=== PATIENT | female | born 1965 | race Caucasian/White ===

== ENCOUNTER → 2017-03-26 | Outpatient (CLI) | payer OTHER ==
--- NOTE | 2017-03-26 16:51 | KCIC ---
Bilateral digital screening mammograms: Reason for examination: Routine screening. Comparison is made to previous studies dated 12/25/2015, 12/18/2014 and 04/11/2013. The skin and nipples show no abnormalities. No abnormal axillary lymph nodes are seen. The breast parenchyma shows scattered fibroglandular density. (Breast density: Category B.) There continues to be some nodular asymmetry at the 12:00 B position of the left breast which is unchanged. There are no new dominant masses, suspicious calcifications or architectural distortions. Impression: No evidence of malignancy. Recommend routine screening. BI-RADS Category 2: Benign. "Our facility is accredited by the [employer] Mammography [employer]." This patient's information has been entered into a reminder system for the patient to be notified with the results of her examination and a target date for the next mammogram. Electronically signed by: Amy Marquez MD (03/26/2017 4:48 PM) [facility]
== END | disposition home or self-care (01) ==
LOC: KCIC MAMMO 15:50
PROVIDERS: ATTEND Family Medicine
DX: Z12.31 Encounter for screening mammogram for malignant neoplasm of breast (principal)
CPT/HCPCS: G0202; 77067

== ENCOUNTER → 2018-04-09 | Outpatient (CLI) | payer OTHER | END | disposition home or self-care (01) | LOC: KCIC MAMMO 14:42 | DX: Z12.31 Encounter for screening mammogram for malignant neoplasm of breast (principal) | CPT/HCPCS: 77063; 77067 ==

== ENCOUNTER → 2019-04-14 | Outpatient (CLI) | payer OTHER ==
--- NOTE | 2019-04-14 20:21 | KCIC ---
Bilateral digital screening mammograms: Reason for examination: Routine screening. Comparison is made to previous studies dated 04/09/2018 and 03/26/2000 Interpretation was made with the benefit of CAD. The skin and nipples show no abnormalities. No abnormal axillary lymph nodes are seen. The breast parenchyma shows scattered fibroglandular density. (Breast density: Category B.) There are no dominant masses, suspicious calcifications or architectural distortions. Impression: No evidence of malignancy. Recommend routine screening. BI-RADS Category 2: Benign. "Our facility is accredited by the [employer] Mammography [employer]." This patient's information has been entered into a reminder system for the patient to be notified with the results of her examination and a target date for the next mammogram. Electronically signed by: Amy Marquez MD (04/14/2019 8:19 PM) [id number]
== END | disposition home or self-care (01) ==
LOC: KCIC MAMMO 13:53
PROVIDERS: ATTEND Family Medicine
DX: Z12.31 Encounter for screening mammogram for malignant neoplasm of breast (principal); N64.89 Other specified disorders of breast
CPT/HCPCS: 77067

== ENCOUNTER 2020-12-04 07:26 | Outpatient (CLI) | payer OTHER ==
[2020-12-04] VITALS (8 sets, daily range): BP systolic 95–137; BP diastolic 52–75
[~2020-12-04] VITALS: Ht 162.6 cm; Wt 76.7 kg
[2020-12-04] MEDS ORDERED: LIDOCAINE WITH 8.4% SOD BICARB 3 ML DISP.SYRIN. ONE ×2 (07:43→08:48)
[2020-12-04 08:14] LABS: BASO % 1 % (0-3); EOS # 0.1 x10^3/uL (0.0-0.7); EOS % 2 % (0-3); HEMATOCRIT 36.6 % (36.0-47.0); HEMOGLOBIN 12.2 g/dL (12.0-15.5); LYMPH % 37 % (24-48); MEAN CORPUSCULAR HEMOGLOBIN 31 pg (25-35); MEAN CORPUSCULAR HGB CONC 33 g/dL (31-37); MEAN CORPUSCULAR VOLUME 93 fL (79-100); MONO # 0.5 x10^3/uL (0.0-1.1); MONO % 10 % (0-9); NEUT # 2.6 x10^3/uL (1.8-7.7); NEUT % 49 % (31-73); PLATELET COUNT 339 x10^3/uL (140-400); RED BLOOD COUNT 3.93 x10^6/uL (3.50-5.40); RED CELL DISTRIBUTION WIDTH 13.1 % (11.5-14.5); WHITE BLOOD COUNT 5.3 x10^3/uL (4.0-11.0)
[2020-12-04 08:24] LABS: PROTHROMBIN TIME PATIENT 12.7 SEC (11.7-14.0)
[2020-12-04] MEDS ORDERED: LEVO25TA4 PO (08:36)
[2020-12-04] MEDS ORDERED: OMEP20TA63 PO (08:36)
[2020-12-04] MEDS ORDERED: FLUMAZENIL 0.5 MG/5 ML VIAL. IV ONE (08:42)
[2020-12-04] MEDS ORDERED: NALOXONE 0.4 MG/ML VIAL. ONE (08:42)
[2020-12-04] MEDS ORDERED: MIDAZOLAM HCL/PF 5 MG/5 ML VIAL. ONE (08:42)
[2020-12-04] MEDS ORDERED: fentaNYL PF VIAL 250 MCG/5 ML VIAL ONE (08:42)
[2020-12-04] MEDS ORDERED: LIDOCAINE WITH 8.4% SOD BICARB 3 ML DISP.SYRIN. IJ ONE (09:00)
[2020-12-04] MEDS ORDERED: fentaNYL PF VIAL 250 MCG/5 ML VIAL IV ONE (09:00)
[2020-12-04] MEDS ORDERED: MIDAZOLAM HCL/PF 5 MG/5 ML VIAL. IV ONE (09:00)
--- NOTE | 2020-12-04 10:09 | NUR ---
Discharge Note: ISAMAR ESCOBAR Discharge instructions and discharge home medications reviewed with Patient and a copy given. All questions have been answered and understanding verbalized. The following instructions and handouts were given: adult moderate sedation Discontinued lines and drains: Peripheral IV intact. Patient discharged to Home or Self Care withFamily Membervia Wheelchair
--- NOTE | 2020-12-06 08:40 | RAD ---
Limited CT imaging of the chest 12/04/2020 Indication: CT imaging was obtained in preparation for a left upper lobe nodule biopsy Discussion: CT imaging of the chest was performed without contrast. There has been marked interval decrease in the solid, spiculated looking nodule in the left upper lobe in the interim. There is only a small residual groundglass opacity. This most likely represented an infectious or inflammatory process that is resolving. Biopsy not indicated at current time. IMPRESSION: Previously seen nodule in the left upper lung is significantly improved with only minimal residual ground glass opacity. Biopsy not indicated at current time. PQRS Compliance Statement: One or more of the following individualized dose reduction techniques were utilized for this examination: 1. Automated exposure control 2. Adjustment of the mA and/or kV according to patient size 3. Use of iterative reconstruction technique
== END 2020-12-04 10:10 | disposition home or self-care (01) ==
LOC: INTRAD 07:26
PROVIDERS: ATTEND Internal Medicine Critical Care Medicine
DX: R91.8 Other nonspecific abnormal finding of lung field (principal); Z20.822 Contact with and (suspected) exposure to COVID-19; Z79.899 Other long term (current) drug therapy
CPT/HCPCS: 36415; 71250; 85025; 85610; 87426; C9803; J2250; J3010; U0003; 99152

== ENCOUNTER → 2021-03-25 | Outpatient (CLI) | payer OTHER ==
[2020-12-04 09:50] VITALS: BP 97/56
[~2021-03-25] MED LIST: LEVO25TA4 PO; OMEP20TA63 PO
--- NOTE | 2021-03-25 12:22 | RAD ---
CT THORAX WO History: Lung nodule. Comparison: 11/04/2020 CTA chest. Technique: Noncontrast CT of the chest. Findings: Assessment is limited by lack of IV contrast. Cardiovascular: Minimal aortic arch calcification. Mediastinum and kaiser: Unremarkable. Airways, lungs and pleura: Left upper lobe groundglass opacity measures approximately 0.8 cm (axial s eries 8 image 85), significantly decreased from approximately 1.7 cm. In the coronal and sagittal ale ne this appears as a platelike area of scarring. There is a thin linear atelectatic detail to the ple ural surface. Previously described 4 mm nodule right upper lobe near the apex has resolved. Upper abdomen: Mild to moderate paraesophageal hiatal hernia. Osseous structures and soft tissues: Within normal limits for age. Impression: 1. Interval decrease in size of left upper lobe nodule now appearing as a somewhat platelike groundg lass opacity with tract to the pleura. This is favored to represent residual scarring after presumed infection. 2. Result 4 mm right apex nodule. 3. Mild to moderate paraesophageal hiatal hernia. ------ Exposure: One or more of the following individualized dose reduction techniques were utilized for thi s examination: 1. Automated exposure control 2. Adjustment of the mA and/or kV according to patient size 3. Use of iterative reconstruction technique. Electronically signed by: Lowell Conway MD (03/25/2021 12:20 PM) [facility]
== END ==
LOC: CT 08:34
PROVIDERS: ATTEND Internal Medicine Critical Care Medicine
DX: R91.8 Other nonspecific abnormal finding of lung field (principal); K44.9 Diaphragmatic hernia without obstruction or gangrene; I70.0 Atherosclerosis of aorta
CPT/HCPCS: 71250

== ENCOUNTER → 2021-09-12 | Outpatient (CLI) | payer OTHER ==
[2020-12-04 09:50] VITALS: BP 97/56
--- NOTE | 2021-09-12 09:59 | RAD ---
EXAM: Chest, 2 views. HISTORY: Pulmonary nodule. COMPARISON: 03/25/2021 FINDINGS: 2 views of the chest are obtained. There is no infiltrate, pleural effusion or pneumothorax . The heart is normal in size. The previously demonstrated left upper lobe pulmonary nodule is not cl early seen. IMPRESSION: 1. No acute pulmonary finding. 2. Note is made that the previously demonstrated left lower lobe pulmonary nodule is better character ized with CT. Electronically signed by: Gloria Marrero MD (09/12/2021 9:56 AM) [id number]
== END ==
LOC: RAD 09:12
PROVIDERS: ATTEND Internal Medicine Critical Care Medicine
DX: R91.1 Solitary pulmonary nodule (principal)
CPT/HCPCS: 71046

== ENCOUNTER → 2022-01-23 | Outpatient (CLI) | payer OTHER ==
[2020-12-04 09:50] VITALS: BP 97/56
--- NOTE | 2022-01-23 17:21 | KCIC ---
Bilateral digital screening mammograms with 3-D tomosynthesis: Reason for examination: Routine screening. Comparison is made to previous studies dated back to 12/25/2015. Bilateral mammograms in CC and oblique projections were obtained with 2-D imaging and 3-D tomosynthes is imaging on a Siemens Inspiration unit and reviewed on the workstation. Interpretation was made wit h the benefit of CAD. The skin and nipples show no abnormalities. No abnormal axillary lymph nodes are seen. The breast par enchyma shows scattered fatty and fibroglandular density. (Breast density: Category B.) There are no dominant masses, suspicious calcifications or architectural distortion. Impression: No evidence of malignancy. Recommend routine screening. BI-RAD Category 1: Negative. "Our facility is accredited by the [employer] Mammography [employer]." This patient's information has been entered into a reminder system for the patient to be notified wit h the results of her examination and a target date for the next mammogram. Electronically signed by: Amy Marquez MD (01/23/2022 5:19 PM) [id number]
== END ==
LOC: KCIC MAMMO 16:02
PROVIDERS: ATTEND Family Medicine
DX: Z12.31 Encounter for screening mammogram for malignant neoplasm of breast (principal)
CPT/HCPCS: 77063; 77067